=== PATIENT | female | born 1955 | race Caucasian/White ===

== ENCOUNTER 2023-08-01 11:41 | Emergency (ER) | payer MEDICARE ==
[~2023-08-01] VITALS: Ht 165.1 cm; Wt 61.8 kg
[2023-08-01 11:48] VITALS: TEMP 97.6
[2023-08-01] MEDS: LIDOcaine 1% 30ml preserv. free vial IJ STA (12:36)
[2023-08-01 13:04] VITALS: BP 168/72; PULSE 82; RESP 18; O2SAT 98
[2023-08-01] MEDS ORDERED: CEPH-585 PO (13:17)
[2023-08-01] MEDS: bacitracin 15gm ointment TP ONE (13:22)
[2023-08-01] MEDS: TETanus/Pertussis (Acell)/Diphther VAC/PF (Tdap-Adult) 0.5ml syringe IMVAC ONE (13:22)
== END 2023-08-01 13:29 | disposition home or self-care (01) ==
LOC: ER 11:41
DX: S51.012A Laceration without foreign body of left elbow, initial encounter (principal); W18.30XA Fall on same level, unspecified, initial encounter; Y93.55 Activity, bike riding; Y92.828 Other wilderness area as the place of occurrence of the external cause; Y99.8 Other external cause status
CPT/HCPCS: 12002; 73080; 90471; 90715; 99283